=== PATIENT | female | born 1970 | race Caucasian/White ===

== ENCOUNTER 2025-04-30 05:00 | Outpatient (RCR) | payer MEDICARE, SELFPAY | END 2025-05-29 23:59 | disposition home or self-care (01) | LOC: SPT 05:00 | PROVIDERS: Visit Provider Obstetrics & Gynecology Female Pelvic Medicine and Reconstructive Surgery | DX: N39.46 Mixed incontinence (principal); R39.82 Chronic bladder pain; M62.89 Other specified disorders of muscle; M79.18 Myalgia, other site | CPT/HCPCS: 97161 ==

== ENCOUNTER 2025-05-30 05:00 | Outpatient (RCR) | payer MEDICARE, SELFPAY | END 2025-06-29 23:59 | disposition home or self-care (01) | LOC: SPT 05:00 | PROVIDERS: Visit Provider Obstetrics & Gynecology Female Pelvic Medicine and Reconstructive Surgery | DX: N39.46 Mixed incontinence (principal); R39.82 Chronic bladder pain | CPT/HCPCS: 97110 ==

== ENCOUNTER 2025-07-31 06:30 | Outpatient (RCR) | payer MEDICARE, SELFPAY | END 2025-08-29 23:59 | disposition home or self-care (01) | LOC: SPT 06:30 | PROVIDERS: Visit Provider Obstetrics & Gynecology Female Pelvic Medicine and Reconstructive Surgery | DX: N39.46 Mixed incontinence (principal); R39.82 Chronic bladder pain; M62.89 Other specified disorders of muscle; M79.18 Myalgia, other site | CPT/HCPCS: 97110 ==

== ENCOUNTER 2025-08-30 06:30 | Outpatient (RCR) | payer MEDICARE, OTHER, SELFPAY | END 2025-09-01 11:03 | disposition home or self-care (01) | LOC: SPT 06:30 | PROVIDERS: Visit Provider Obstetrics & Gynecology Female Pelvic Medicine and Reconstructive Surgery | DX: N39.46 Mixed incontinence (principal); R39.82 Chronic bladder pain; M62.89 Other specified disorders of muscle; M79.18 Myalgia, other site | CPT/HCPCS: 97110; 97530 ==